=== PATIENT | male | born 1955 | race Caucasian/White ===

== ENCOUNTER → 2017-03-20 | Outpatient (CLI) | payer BC ==
[~2017-03-20] MED LIST: CETI10TA22 PO; CIPR250T PO; CYCL5TAB PO; ESOM40CA25 PO; FLUT16SP NS; IOHEXOL 300 MG/ML 50 ML VIAL. IT ONE; LIDOCAINE 1% Multi-Dose 20 ML VIAL. ID ONE; METH4TAB7 PO; OMEP20TA8 PO; TRAM50TA PO
--- NOTE | 2017-03-20 12:23 | KCIC ---
Cervical myelogram History: Cervical radiculopathy Technique: Patient was informed of the risks to include pain, infection, bleeding, seizures, allergic reaction, nerve root injury. All questions were answered. Patient signed a written consent form for a cervical myelogram. The patient was placed in a prone oblique position. The patient was prepped and draped in the usual sterile fashion. 1% lidocaine was utilized for local anesthesia at the anticipated site of puncture of the right L4-5 interlaminar space. A 19-gauge guiding needle was advanced into the soft tissues. Through the guiding needle, a 25 gauge Jose Angel needle was advanced until there was return of cerebral spinal fluid. Approximately 10 cc [id number]-[id number] were then injected during fluoroscopic visualization. The needles were removed. Patient was repositioned so as to allow for the flow of contrast into the cervical spine. Fluoroscopic spot images and lateral radiograph were obtained of the cervical spine. The patient was then transferred to the CT department for CT examination of the cervical spine. There were no immediate complications. Fluoroscopy time: 30 seconds, 6 images Findings: There has been anterior cervical fusion C4, C5, C6. There is multilevel cervical facet degenerative change. There is no evidence of myelographic block. There is degenerative disc disease and spondylosis at C3-4 and C6-7 at which there are anterior extradural defects. Impression: 1. There has been anterior cervical fusion C4, C5, C6. There is degenerative disc disease and spondylosis at C3-4 and C6-7 at which there are anterior extradural defects. Electronically signed by: David Marino MD (03/20/2017 12:20 PM) [email or web address]
--- NOTE | 2017-03-20 13:11 | KCIC ---
Cervical spine CT without contrast History: Cervical radiculopathy, right radiculopathy, neck pain and stiffness for 6 to 8 months Technique: Noncontrast CT imaging was performed of the cervical spine. Multiplanar images are reviewed. Exposure: One or more of the following individualized dose reduction techniques were utilized for this examination: 1. Automated exposure control 2. Adjustment of the mA and/or kV according to patient size 3. Use of iterative reconstruction technique. Comparison: May 27, 2014 exam Findings: There has been interval anterior cervical fusion at C4, C5, C6. Anterior metallic plate and screws are intact. There are incorporated interbody grafts at C4-5 and C5-C6 at which there is now osseous interbody fusion. There is again fairly advanced degenerative disc disease C3-4, to lesser degree at C6-7. Cervical vertebral body stature is preserved. There is negligible posterior subluxation C3 relative to C4. Atlantoaxial distance is within normal limits. There is adequate alignment of the lateral masses of C1 relative to C2. Occipital condylar-C1 articulation is preserved. C2-C3: Spinal canal and the neural foramina are adequate. There is bilateral facet degenerative change. C3-4: There is again broad posterior disc osteophyte complex and bulge. Central canal is narrowed to 7 to 8 mm as seen previously. There is again bilateral facet hypertrophic change. There is also uncovertebral degenerative change bilaterally. Moderate to severe narrowing of the right neural foramen is overall greater. There is fairly severe narrowing of the left neural foramen. C4-5: There is bilateral facet hypertrophic change. Spinal canal now overall adequate. There is minimal narrowing of the right neural foramen, left neural foramen overall adequate. C5-6: Spinal canal and neural foramina are adequate. C6-7: Spinal canal is overall adequate. There is minimal disc osteophyte complex and lateral recesses. There is uncovertebral degenerative change greater on the right. Left neural foramen is adequate. There is mild to moderate narrowing of the right neural foramen. C7-T1: Spinal canal and neural foramina are adequate. Impression: 1. There has been anterior cervical fusion C4-C6, osseous interbody fusion at C4-5 and C5-C6 now present. 2. There is spinal stenosis to 7-8 mm at C3-4. 3. There is neural foramina compromise as stated due to facet and uncovertebral degenerative change greatest bilaterally at C3-C4, to a lesser degree on the right at C6-7. 4. There is fairly advanced degenerative disc disease C3-4 and to lesser degree at C6-7, spondylosis at these levels. Electronically signed by: David Marino MD (03/20/2017 1:08 PM) [email or web address]
== END | disposition home or self-care (01) ==
LOC: KCIC 10:47
PROVIDERS: ATTEND Neurological Surgery
DX: M48.02 Spinal stenosis, cervical region (principal); M50.121 Cervical disc disorder at C4-C5 level with radiculopathy; M50.122 Cervical disc disorder at C5-C6 level with radiculopathy; M50.123 Cervical disc disorder at C6-C7 level with radiculopathy
CPT/HCPCS: 72126; 72240; Q9967